=== PATIENT | male | born 1995 | race African-American/Black ===

== ENCOUNTER 2017-02-26 14:01 | Emergency (ER) | payer SELFPAY ==
[~2017-02-26] VITALS: Ht 175.3 cm; Wt 69.4 kg
[2017-02-26 15:08] VITALS: BP 138/88
--- NOTE | 2017-02-26 15:26 | RAD ---
EXAM: Right hand, 3 views. HISTORY: Punched a wall. COMPARISON: None. FINDINGS: Frontal, lateral and oblique views of the left hand are obtained. There is no fracture, dislocation or subluxation. IMPRESSION: No acute osseous finding.
--- NOTE | 2017-02-26 15:57 | ED.ADGEN ---
Past Medical History Past Medical History: No Pertinent History Past Surgical History: No Surgical History Alcohol Use: Occasionally Drug Use: Marijuana Adult General Chief Complaint Chief Complaint: HAND PROBLEM HPI HPI Patient is a 22 year old [id number] male presents emergency department is diffuse right hand pain and swelling after punching a wooden door 3 times approximately 12 hours prior to arrival. He has had no prehospital intervention. Denies any other injuries. Review of Systems Review of Systems Constitutional: Denies fever or chills. [] Eyes: Denies change in visual acuity. [] HENT: Denies nasal congestion or sore throat. [] Respiratory: Denies cough or shortness of breath. [] Cardiovascular: Denies chest pain or edema. [] GI: Denies abdominal pain, nausea, vomiting, bloody stools or diarrhea. [] : Denies dysuria. [] Musculoskeletal: Denies back pain or joint pain. [] Integument: Denies rash. [] Neurologic: Denies headache, focal weakness or sensory changes. [] Endocrine: Denies polyuria or polydipsia. [] Lymphatic: Denies swollen glands. [] Psychiatric: Denies depression or anxiety. [] Allergies Allergies Allergies Coded Allergies Type Severity Reaction Last Updated Verified No Known Drug Allergies 03/20/16 No Physical Exam Physical Exam Constitutional: Well developed, well nourished, no acute distress, non-toxic appearance. [] HENT: Normocephalic, atraumatic, bilateral external ears normal, oropharynx moist, no oral exudates, nose normal. [] Eyes: PERRLA, EOMI, conjunctiva normal, no discharge. [] Neck: Normal range of motion, no tenderness, supple, no stridor. [] Cardiovascular:Heart rate regular rhythm, no murmur [] Lungs & Thorax: Bilateral breath sounds clear to auscultation [] Abdomen: Bowel sounds normal, soft, no tenderness, no masses, no pulsatile masses. [] Skin: Warm, dry, no erythema, no rash. [] Extremities: Right hand is diffusely edematous posteriorly with diffuse tenderness to palpation, neurovascularly intact, full range of motion but limited by pain [] Neurologic: Alert and oriented X 3, normal motor function, normal sensory function, no focal deficits noted. [] Psychologic: Affect normal, judgement normal, mood normal. [] Current Patient Data Vital Signs Vital Signs Date Time Temp Pulse Resp B/P Pulse Ox O2 Delivery O2 Flow Rate FiO2 02/26/17 15:08 98.5 83 18 99 Room Air 98.5 EKG EKG [] Radiology/Procedures Radiology/Procedures EXAM: Right hand, 3 views. HISTORY: Punched a wall. COMPARISON: None. FINDINGS: Frontal, lateral and oblique views of the left hand are obtained. There is no fracture, dislocation or subluxation. IMPRESSION: No acute osseous finding. DICTATED and SIGNED BY: LILIANA VAZQUEZ MD DATE: 02/26/17 1523 CC: LINN HARMON MD; [facility] INTERVENTION SPECIALIST; NO PCP ~[] Course & Med Decision Making Course & Med Decision Making Pertinent Labs and Imaging studies reviewed. (See chart for details) Reassuring x-ray. Patient was given supportive care and follow-up instructions. He will return emergency Department sooner if develops new or worsening symptoms. [] Dragon Disclaimer Dragon Disclaimer This electronic medical record was generated, in whole or in part, using a voice recognition dictation system. LINN HARMON MD Feb 26, 2017 15:57
== END 2017-02-26 15:56 | disposition home or self-care (01) ==
LOC: ER 14:01
DX: M79.641 Pain in right hand (principal); F12.10 Cannabis abuse, uncomplicated; W22.8XXA Striking against or struck by other objects, initial encounter; Y93.89 Activity, other specified; Y92.89 Other specified places as the place of occurrence of the external cause; Y99.8 Other external cause status
CPT/HCPCS: 73130; 99284

== ENCOUNTER 2018-03-12 18:09 | Emergency (ER) | payer SELFPAY | END 2018-03-12 19:05 | disposition home or self-care (01) | LOC: ER 18:09 | DX: S29.012A Strain of muscle and tendon of back wall of thorax, initial encounter (principal); F12.10 Cannabis abuse, uncomplicated; V49.9XXA Car occupant (driver) (passenger) injured in unspecified traffic accident, initial encounter; Y93.9 Activity, unspecified; Y99.8 Other external cause status; Y92.488 Other paved roadways as the place of occurrence of the external cause | CPT/HCPCS: 99283 ==

== ENCOUNTER 2018-03-25 21:55 | Emergency (ER) | payer SELFPAY ==
[2018-03-26] MEDS: diazePAM 5 MG TABLET PO (00:35)
[2018-03-26] MEDS: HYDROcodone/APAP 5/325MG 1 TAB TABLET PO (00:35)
== END 2018-03-26 01:25 | disposition home or self-care (01) ==
LOC: ER 21:55
DX: S16.1XXA Strain of muscle, fascia and tendon at neck level, initial encounter (principal); F12.10 Cannabis abuse, uncomplicated; V89.2XXA Person injured in unspecified motor-vehicle accident, traffic, initial encounter; Y93.89 Activity, other specified; Y99.8 Other external cause status; Y92.89 Other specified places as the place of occurrence of the external cause
CPT/HCPCS: 70450; 72125; 99284-25

== ENCOUNTER 2020-07-19 14:10 | Emergency (ER) | payer SELFPAY ==
[~2020-07-19] VITALS: Ht 175.3 cm; Wt 75.0 kg
[~2020-07-19 14:10] MED LIST: CYCL10TA2 PO; IBUP-1007 PO; TRAM50TA PO
[2020-07-19 14:50] VITALS: BP 131/65
--- NOTE | 2020-07-19 15:04 | PHYS DOC ---
Past Medical History Past Medical History: Anxiety Past Surgical History: Other Additional Past Surgical Histo: jaw; right thumb Smoking Status: Current Every Day Smoker Alcohol Use: Occasionally Drug Use: Marijuana General Adult EDM: Chief Complaint: SEXUALLY TRANSMITTED DISEASE HPI: HPI: Patient is a 25 year old male who presents with an exposure to chlamydia. Patient's significant other was tested positive chlamydia. Patient denies any complaints at this time no dysuria or discharge from the penis. Patient has no abdominal pain no fever vomiting. Review of Systems: Review of Systems: Constitutional: Denies fever or chills. [] Eyes: Denies change in visual acuity. [] HENT: Denies nasal congestion or sore throat. [] Respiratory: Denies cough or shortness of breath. [] Cardiovascular: Denies chest pain or edema. [] GI: Denies abdominal pain, nausea, vomiting, bloody stools or diarrhea. [] : Denies dysuria. [] Musculoskeletal: Denies back pain or joint pain. [] Integument: Denies rash. [] Neurologic: Denies headache, focal weakness or sensory changes. [] Endocrine: Denies polyuria or polydipsia. [] Lymphatic: Denies swollen glands. [] Psychiatric: Denies depression or anxiety. [] Heart Score: Risk Factors: Risk Factors: DM, Current or recent (<one month) smoker, HTN, HLP, family history of CAD, obesity. Risk Scores: Score 0 - 3: 2.5% MACE over next 6 weeks - Discharge Home Score 4 - 6: 20.3% MACE over next 6 weeks - Admit for Clinical Observation Score 7 - 10: 72.7% MACE over next 6 weeks - Early Invasive Strategies Allergies: Allergies: Allergies Coded Allergies Type Severity Reaction Last Updated Verified No Known Drug Allergies 03/20/16 No Physical Exam: PE: Constitutional: Well developed, well nourished, no acute distress, non-toxic appearance. HENT: No trismus, external ears normal Eyes: Conjunctiva clear, EOMI Neck: Normal range of motion, no tenderness, supple, no stridor. Cardiovascular: Regular rate/rhythm, peripheral pulse intact, CHARGEMASTER SPECIALIST intact Lungs & Thorax: No respiratory distress Abdomen: No distension Skin: Diffuse: Intact, no rash Back: Full ROM Extremities: Normal inspection, no edema Neurologic: Alert and oriented X 3, normal motor function, , no focal deficits noted. Psychologic: Affect normal, judgement normal, mood normal. EKG: EKG: [] Radiology/Procedures: Radiology/Procedures: [] Course & Med Decision Making: Course & Med Decision Making Pertinent Labs and Imaging studies reviewed. (See chart for details) [] Patient with STI exposure. Patient will be treated for gonorrhea and chlamydia. No other concerns. Dragon Disclaimer: [employer] international Disclaimer: This electronic medical record was generated, in whole or in part, using a voice recognition dictation system. Departure Departure Impression: Primary Impression: Chlamydia infection Disposition: HOME, SELF-CARE Condition: STABLE Referrals: NO PCP (PCP) 2-3 DAYS Patient Instructions: Urethritis, Adult Additional Instructions: EMERGENCY DEPARTMENT GENERAL DISCHARGE INSTRUCTIONS THANK YOU for coming to [facility] Emergency Department (ED) today and trusting us with your care. We trust that you had a positive experience in our Emergency Department. If you wish to speak to the department Management you can contact the [place] department supervisor at . YOUR FOLLOW UP INSTRUCTIONS ARE FOLLOWS: Do you have a private doctor? If you do not have a private doctor, please ask for a resource list of physicians or clinics that may be able to assist you with follow up care. The Emergency Physician has interpreted your x-rays. The X-ray specialist will also review them. If there is a change in the findings you will be notified in 48 hours when at all possible. A lab test or lab culture may have been done, your results will be reviewed and you will be notified if you need a change in treatment. ADDITIONAL INSTRUCTIONS AND INFORMATION Your care today has been supervised by a physician who is specially trained in emergency care. Many problems require more than one evaluation for a complete diagnosis and treatment. We recommend that you schedule your follow up appointment as recommended to ensure complete treatment of your illness or injury. If you are unable to obtain follow up care and continue to have a problem, or if your condition worsens we recommend that you return to the ED. We are not able to safely determine your condition over the phone nor are we able to give sound medical advice over the phone. For these safety reasons, if you call for medical advice we will ask you to come to the ED for further evaluation If you have any questions regarding these discharge instructions please call the ED at . SAFETY INFORMATION In the interest of safety, wellness, and injury prevention; we encourage you to wear your seatbelt, if you smoke; quit smoking, and we encourage your family to use protective helmet for bicycling and other sporting events that present an increased risk for head injury. IF YOUR SYMPTOMS WORSEN OR NEW SYMPTOMS DEVELOP, OR YOU HAVE CONCERNS ABOUT YOUR CONDITION; OR IF YOUR CONDITION WORSENS WHILE YOU ARE WAITING FOR YOUR FOLLOW UP APPOINTMENT; EITHER CONTACT YOUR PRIMARY CARE DOCTOR, THE PHYSICIAN WHOSE NAME AND NUMBER YOU WERE GIVEN, OR RETURN TO THE ED IMMEDIATELY. Justicifation of Admission Dx: Justifications for Admission: Justification of Admission Dx: N/A JOHN RODRÍGUEZ MD Jul 19, 2020 15:04
[2020-07-19] MEDS ORDERED: cefTRIAXone IM 250 MG VIAL IM ONE (15:15)
[2020-07-19] MEDS ORDERED: AZITHROMYCIN 250 MG TABLET. PO ONE (15:15)
[2020-07-19] MEDS ORDERED: ONDANSETRON ODT 4 MG TAB.RAPDIS. PO ONE (15:15)
== END 2020-07-19 15:35 | disposition home or self-care (01) ==
LOC: ER 14:10
DX: A74.9 Chlamydial infection, unspecified (principal); F41.9 Anxiety disorder, unspecified; F12.90 Cannabis use, unspecified, uncomplicated; F17.200 Nicotine dependence, unspecified, uncomplicated; Z98.890 Other specified postprocedural states
CPT/HCPCS: 87491; 87591; 96372; 99283; J0696

== ENCOUNTER 2021-10-16 14:40 | Emergency (ER) | payer SELFPAY ==
[~2021-10-16] VITALS: Ht 172.7 cm; Wt 69.2 kg
[~2021-10-16 14:40] MED LIST changes: +CYCL10TA19 PO; -CYCL10TA2 PO
[2021-10-16 14:46] VITALS: BP 123/69
[2021-10-16] MEDS ORDERED: CEPH500C PO (14:59)
--- NOTE | 2021-10-16 15:00 | PHYS DOC ---
Past Medical History Past Medical History: Anxiety (BILL,HUI M MACHINE ATTENDANT) Past Surgical History: Other Additional Past Surgical Histo: jaw; right thumb (BILLWINDYA M MACHINE ATTENDANT) Smoking Status: Current Every Day Smoker Alcohol Use: Occasionally Drug Use: Marijuana (BILL,HUI M MACHINE ATTENDANT) General Adult EDM: Chief Complaint: ELBOW PROBLEM HPI: HPI: Patient is a 26 year old male who presents with right elbow dime sized raised tender abscess. Does also look as though it could be a insect bite. Rate pain a 5/10. Other history is anxiety. Denies numbness or tingling, focal weakness, injury, draining, fever. (BILL,HUI M MACHINE ATTENDANT) Review of Systems: Review of Systems: Constitutional: Denies fever or chills. [] Eyes: Denies change in visual acuity. [] HENT: Denies nasal congestion or sore throat. [] Respiratory: Denies cough or shortness of breath. [] Cardiovascular: Denies chest pain or edema. [] GI: Denies abdominal pain, nausea, vomiting, bloody stools or diarrhea. [] : Denies dysuria. [] Musculoskeletal: Denies back pain or + right elbow joint pain. [] Integument: Denies rash. + Right elbow abscess [] Neurologic: Denies headache, focal weakness or sensory changes. [] Endocrine: Denies polyuria or polydipsia. [] Lymphatic: Denies swollen glands. [] Psychiatric: Denies depression or anxiety. [] ([facility],HUI M MACHINE ATTENDANT) Heart Score: C/O Chest Pain: No ([facility],HUI M MACHINE ATTENDANT) Allergies: Allergies: Allergies Coded Allergies Type Severity Reaction Last Updated Verified No Known Drug Allergies 03/20/16 No ([facility],HUI M MACHINE ATTENDANT) Physical Exam: PE: Constitutional: Well developed, well nourished, no acute distress, non-toxic appearance. [] HENT: Normocephalic, atraumatic, bilateral external ears normal, oropharynx moist, no oral exudates, nose normal. [] Eyes: PERRLA, EOMI, conjunctiva normal, no discharge. [] Neck: Normal range of motion, no tenderness, supple, no stridor. [] Cardiovascular:Heart rate regular rhythm, no murmur [] Lungs & Thorax: Bilateral breath sounds clear to auscultation [] Abdomen: Bowel sounds normal, soft, no tenderness, no masses, no pulsatile masses. [] Skin: Warm, dry, no erythema, no rash. Right elbow dime sized hard nondraining abscess with comedome. [] Back: No tenderness, no CVA tenderness. [] Extremities: No tenderness, no cyanosis, no clubbing, ROM intact, no edema. [] Neurologic: Alert and oriented X 3, normal motor function, normal sensory function, no focal deficits noted. [] Psychologic: Affect normal, judgement normal, mood normal. [] (HUI KHAN APRN) EKG: EKG: [] (HUI KHAN APRN) Radiology/Procedures: Radiology/Procedures: [] (HUI KHAN APRN) Course & Med Decision Making: Course & Med Decision Making Pertinent Labs and Imaging studies reviewed. (See chart for details) See HPI. Alert and oriented x4. Ambulatory steady gait. Skin pink warm and dry. Radial pulse strong present. Cap refill less than 2 seconds. Full range of motion of right elbow without actual elbow swelling. He does have a dime sized raised, hard abscess area to the right elbow. Tender with palpation. Nondraining. No associated cellulitis. Denies injury. Does appear to have a comedone. Possibility for an insect bites also. Afebrile. No redness. No joint laxity. No joint deformity. [] (HUI KHAN APRN) Course & Med Decision Making In discussion with the VIDYA this was an area that appeared to be a folliculitis. There was no fluctuant abscess noted. No need for drainage. (CIRO HUGHES MD) Sheree Disclaimer: Dragfrances Disclaimer: This electronic medical record was generated, in whole or in part, using a voice recognition dictation system. (HUI KHAN APRN) Departure Departure Impression: Primary Impression: Folliculitis Disposition: HOME / SELF CARE / HOMELESS Condition: STABLE Referrals: NO PCP (PCP) Patient Instructions: Abscess Additional Instructions: Follow-up with primary care provider if needed. Take antibiotics as prescribed and with food. Use a heating pad to the area. Take ibuprofen for pain. If the area begins to get bigger, redness or you begin running abscess return emergency room. Scripts Cephalexin (KEFLEX) 500 Mg Capsule 1 CAP PO TID, #30 CAP Prov: HUI KHAN APRN 10/16/21 HUI KHAN APRN Oct 16, 2021 15:00 CIRO HUGHES MD Oct 16, 2021 17:38
== END 2021-10-16 15:14 | disposition home or self-care (01) ==
LOC: ER 14:40
DX: L73.9 Follicular disorder, unspecified (principal); F17.200 Nicotine dependence, unspecified, uncomplicated
CPT/HCPCS: 99283

== ENCOUNTER 2022-01-07 11:56 | Emergency (ER) | payer OTHER ==
[~2022-01-07] VITALS: Ht 175.3 cm; Wt 72.7 kg
[~2022-01-07 11:56] MED LIST changes: +CEPH500C PO
[2022-01-07 11:58] VITALS: BP 131/60
--- NOTE | 2022-01-07 12:34 | RAD ---
EXAM: Right hand, 3 views. HISTORY: Crush injury. COMPARISON: None. FINDINGS: 3 views of the right hand are obtained. There is no fracture, dislocation or subluxation. T here is no foreign body. IMPRESSION: No acute osseous finding. Electronically signed by: Aliya Robertson MD (01/07/2022 12:31 PM) [id number]
[2022-01-07] MEDS ORDERED: IBUP-1007 PO (12:47)
--- NOTE | 2022-01-07 12:47 | PHYS DOC ---
Past Medical History Past Medical History: Anxiety Past Surgical History: Other Additional Past Surgical Histo: Hand and jaw surgery Smoking Status: Current Every Day Smoker Alcohol Use: Occasionally Drug Use: Marijuana General Adult EDM: Chief Complaint: FINGER INJURY HPI: HPI: Patient is a 26 year old male who presents with crush injury to his right hand. Patient states he is moving furniture, and a piece of furniture fell on the medial aspect of his right hand. There is an abrasion on the right pinky finger. Patient states he had prior surgery to the lateral portion of his right hand. He is requesting a note for work. Patient has no other complaints at thi s time. Review of Systems: Review of Systems: ROS negative or noncontributory except as mentioned in HPI. Heart Score: C/O Chest Pain: No Allergies: Allergies: Allergies Coded Allergies Type Severity Reaction Last Updated Verified No Known Drug Allergies 01/07/22 No Physical Exam: PE: Constitutional: Well developed, well nourished, no acute distress, non-toxic appearance. HENT: Normocephalic, atraumatic, bilateral external ears normal, nose normal. Eyes: EOMI, conjunctiva normal, no discharge. Neck: Normal range of motion, no stridor. Skin: Superficial abrasion noted on dorsal aspect of right pinky PIP joint. Skin otherwise warm, dry, no erythema, no rash. Extremities: No tenderness, no cyanosis, no clubbing, ROM intact, no edema, full active flexion and extension of right digit 5 intact. Neurologic: Alert and oriented x4, motor and sensory function grossly intact, no focal deficits noted. Current Patient Data: Vital Signs: Vital Signs Date Time Temp Pulse Resp B/P (MAP) Pulse Ox O2 Delivery O2 Flow Rate FiO2 01/07/22 11:58 97.7 81 20 131/60 (83) 97 Room Air 97.7 Radiology/Procedures: Radiology/Procedures: PROCEDURE: HAND RIGHT 3V EXAM: Right hand, 3 views. HISTORY: Crush injury. COMPARISON: None. FINDINGS: 3 views of the right hand are obtained. There is no fracture, dislocation or subluxation. There is no foreign body. IMPRESSION: No acute osseous finding. Electronically signed by: Aliya Robertson MD (01/07/2022 12:31 PM) [id number] Course & Med Decision Making: Course & Med Decision Making Pertinent Labs and Imaging studies reviewed. (See chart for details) Patient is a 26-year-old male who presents to the emergency department for a work note after sustaining an injury moving furniture. Plain films do not show any acute fracture dislocation. Patient will be discharged home with prescription for ibuprofen, at his request. He was also provided with a note excusing him from work. All the patient questions were answered. Patient understands and is agreeable to discharge at this time. Dragon Disclaimer: Dragon Disclaimer: This electronic medical record was generated, in whole or in part, using a voice recognition dictation system. Departure Departure Impression: Primary Impression: Contusion, hand Qualified Codes: S60.221A - Contusion of right hand, initial encounter Disposition: HOME / SELF CARE / HOMELESS Condition: IMPROVED Referrals: NO PCP (PCP) DAVID BAILON Jr. DO Patient Instructions: Hand Contusion, [id number], Hand Injuries, [id number] Additional Instructions: EMERGENCY DEPARTMENT GENERAL DISCHARGE INSTRUCTIONS Thank you for coming to [facility] Emergency Department (ED) today and trusting us with you care. We trust that you had a positive experience in our Emergency Department. If you wish to speak to the department management, you may call the director at . YOUR FOLLOW UP INSTRUCTIONS ARE FOLLOWS: 1. Follow up with your primary care doctor. If you do not have a primary doctor, please ask for a resource list of physicians or clinics that may be able to assist you with follow up care. 2. The emergency provider has interpreted your imaging studies, if any were ordered. The radiology biochemistry specialist also reviewed them. If there is a change in the findings, you will be notified in 48 hours when at all possible. 3. If a lab test or culture has been done, your results will be reviewed and you will be notified if you need a change in treatment. 4. Follow instructions verbalized to you and refer to the printouts if needed. ADDITIONAL INSTRUCTIONS AND INFORMATION: 1. Your care today has been supervised by a physician who is specially trained in emergency care. Many problems require more than one evaluation for a complete diagnosis and treatment. We recommend that you schedule your follow up appointment as recommended to ensure complete treatment of you illness or injury. If you are unable to obtain follow up care and continue to have a problem, or if your condition worsens, we recommend that you return to the ED. 2. We are not able to safely determine your condition over the phone nor are we able to give sound medical advice over the phone. For these safety reasons, if you call for medical advice we will ask you to come to the ED for further evaluation. 3. If you have any questions regarding these discharge instructions please call the ED at . SAFETY INFORMATION: In the interest of safety, wellness, and injury prevention; we encourage you to wear your seat belt, if you smoke; quite smoking, and we encourage family to use a protective helmet for bicycling and other sporting events that present an increased risk for head injury. IF YOUR SYMPTOMS WORSEN OR NEW SYMPTOMS DEVELOP, OR YOU HAVE CONCERNS ABOUT YOUR CONDITION; OR IF YOUR CONDITION WORSENS WHILE YOU ARE WAITING FOR YOUR FOLLOW UP APPOINTMENT; EITHER CONTACT YOUR PRIMARY CARE DOCTOR, THE PHYSICIAN WHOSE NAME AND NUMBER YOU WERE GIVEN, OR RETURN TO THE ED IMMEDIATELY. Scripts Ibuprofen (IBUPROFEN) 600 Mg Tablet 600 MG PO PRN Q6HRS PRN for PAIN, #20 TAB Prov: LASHANDA LICEA 01/07/22 LASHANDA LICEA Jan 07, 2022 12:47
== END 2022-01-07 13:21 | disposition home or self-care (01) ==
LOC: ER 11:56
DX: S60.221A Contusion of right hand, initial encounter (principal); F17.200 Nicotine dependence, unspecified, uncomplicated; W20.8XXA Other cause of strike by thrown, projected or falling object, initial encounter; Y93.89 Activity, other specified; Y92.89 Other specified places as the place of occurrence of the external cause; Y99.8 Other external cause status
CPT/HCPCS: 73130; 99283